=== PATIENT | male | born 1995 | race Caucasian/White ===

== ENCOUNTER 2017-11-15 23:57 | Emergency (ER) | payer OTHER ==
[~2017-11-15] VITALS: Ht 175.3 cm; Wt 106.6 kg
[~2017-11-15 23:57] MED LIST: ALBU90OI INH; AMOCLA500; AMOX500 PO; AZIT250 PO; Bactrim Ds Tab1 EACH PO; CEPH500; CEPH500 PO; CODACE30 PO; CODACEE120 PO; ERYT.5TO LEFTEYE; FLUO20 PO; HYDACE5 PO; IBUP600; IBUP600 PO; LEVE500 PO; LISI5 PO; LORA1 PO; OMEPRAZOLE MAGN20 MG PO; OXCA300 PO; OXYC1TAB11; OXYC5 PO; Percocet 5-3251 EACH PO; SULTRIDS; SULTRIDS PO; TEMODAR; TEMODAR PO; TOPI50 PO; TRILIPTAL PO; VIMPAT; [UNRECOGNIZED DRUG - OTHER] PO; [UNRECOGNIZED DRUG - OTHER] PO
[2017-11-16 00:11] LABS: Hemoglobin 13.9 g/dL (13.5-17.5); Mean Corpuscular HGB 33.9 pg (26.0-34.0); Mean Corpuscular HGB Conc 34.8 g/dL (31.5-36.5); Mean Platelet Volume 8.4 fL (9.1-12.4); Platelet Count 197 K/mm3 (150-400); RDW Standard Deviation 53.5 fL (35.1-46.3); White Blood Cell Count 6.54 K/mm3 (4.00-11.30)
[2017-11-16 00:17] LABS: Mean Corpuscular Volume 98 fL (80-100)
[2017-11-16 00:30] LABS: Alanine Aminotransfer (ALT/SGP 63 U/L (12-78); Albumin, Blood 3.9 g/dL (3.4-5.0); Albumin/Globulin Ratio 1.1 (0.8-1.8); Alk Phos 76 U/L (50-136); Anion Gap 15 mmol/L (6-16); Aspartate Aminotrans (AST/SGOT 41 U/L (12-37); Bilirubin, Total 0.4 mg/dL (0.1-1.0); Blood Urea Nitrogen 19 mg/dL (8-24); Bun/Creatinine Ratio 16.1 (12.0-20.0); CO2, Blood 20 mmol/L (21-32); Calcium, Blood 8.7 mg/dL (8.5-10.1); Chloride, Blood 105 mmol/L (98-108); Creatinine, Blood 1.18 mg/dL (0.60-1.20); Globulin, Blood 3.5 g/dL (2.2-4.0); Glomerular Filtration Rate >60 (60-); Glucose, Blood 155 mg/dL (70-99); Potassium, Blood 4.4 mmol/L (3.5-5.5); Sodium, Blood 140 mmol/L (136-145); Total Protein, Blood 7.4 g/dL (6.4-8.2)
[2017-11-16 00:35] LABS: BAND PERCENT MAN 4 % (0-8); BASOPHILS PERCENT MAN 0 % (0-2); EOSINOPHILS PERCENT MAN 0 % (0-6); LYMPHOCYTES PERCENT MAN 20 % (21-46); METAMYELOCYTE ABSOLUTE MAN 0.13 K/mm3 (0.00-0.00); METAMYELOCYTE PERCENT MAN 2 % (0-0); MONOCYTES ABSOLUTE MAN 0.45 K/mm3 (0.16-1.47); MONOCYTES PERCENT MAN 7 % (4-13); MYELOCYTE ABSOLUTE MAN 0.26 K/mm3 (0.00-0.00); MYELOCYTE PERCENT MAN 4 % (0-0); NEUTROPHILS ABSOLUTE MAN 4.38 K/mm3 (1.96-9.15); SEG NEUTROPHILS PERCENT MAN 63 % (41-73); TOTAL CELLS COUNTED 100
[2017-11-16] MEDS ORDERED: DEXA4 PO (00:43)
[2017-11-16] MEDS ORDERED: GLEOSTINE100 MG PO (00:44)
[2017-11-16] MEDS ORDERED: LISI5 PO (00:44)
[2017-11-16] MEDS ORDERED: LORA1 PO (00:45)
[2017-11-16] MEDS ORDERED: MEDICAL MARIJAUNA PO (00:46)
[2017-11-16] MEDS ORDERED: MIDAZOLAM INH (00:48)
[2017-11-16] MEDS ORDERED: Zofran8 MG PO (00:49)
[2018-01-12] MEDS ORDERED: LACO50TA2 PO (08:02)
[2018-01-12] MEDS ORDERED: LEVE500 PO (08:04)
[2018-01-12] MEDS ORDERED: HYDMOR2 PO (08:04)
[2018-01-12] MEDS ORDERED: DOCU100 PO (08:04)
== END 2017-11-16 02:47 | disposition home or self-care (01) ==
LOC: ER 23:57
PROVIDERS: Emergency Medicine
DX: G40.909 Epilepsy, unspecified, not intractable, without status epilepticus (principal); C71.9 Malignant neoplasm of brain, unspecified; Z88.8 Allergy status to other drugs, medicaments and biological substances; Z79.899 Other long term (current) drug therapy
CPT/HCPCS: 36415; 80053; 85025; 93005; 93010; 99284

== ENCOUNTER 2017-11-30 01:00 | Emergency (ER) | payer OTHER ==
[~2017-11-30] VITALS: Ht 175.3 cm; Wt 106.6 kg
[~2017-11-30 01:00] MED LIST changes: +DEXA4 PO; +GLEOSTINE100 MG PO; +MEDICAL MARIJAUNA PO; +MIDAZOLAM INH; +Zofran8 MG PO
[2017-11-30 01:36] LABS: Hematocrit 46.7 % (37.0-53.0); Hemoglobin 15.9 g/dL (13.5-17.5); LYMPHOCYTES PERCENT AUTO 19 % (21-46); MONOCYTES ABSOLUTE AUTO 2.29 K/mm3 (0.16-1.47); MONOCYTES PERCENT AUTO 8 % (4-13); Mean Corpuscular HGB 34.5 pg (26.0-34.0); Mean Platelet Volume 9.6 fL (9.1-12.4); NRBC ABSOLUTE 0.06 K/mm3 (0.00-0.02); NRBC Auto 0.2 /100 WBC (0.0-0.2); Platelet Count 245 K/mm3 (150-400); RDW Coefficient Variation 14.1 % (11.7-14.2); Red Blood Cell Count 4.61 M/mm3 (4.30-5.90); White Blood Cell Count 28.24 K/mm3 (4.00-11.30)
[2017-11-30 01:40] LABS: BASOPHILS ABSOLUTE AUTO 0.06 K/mm3 (0.00-0.23); BASOPHILS PERCENT AUTO 0 % (0-2); EOSINOPHILS PERCENT AUTO 0 % (0-6); IMMATURE GRAN PERCENT AUTO 17 % (0-1); Mean Corpuscular Volume 101 fL (80-100); NEUTROPHILS ABSOLUTE AUTO 15.69 K/mm3 (1.96-9.15); NEUTROPHILS PERCENT AUTO 56 % (41-73)
[2017-11-30 01:43] LABS: Alanine Aminotransfer (ALT/SGP 112 U/L (12-78); Albumin, Blood 3.9 g/dL (3.4-5.0); Alk Phos 135 U/L (50-136); Anion Gap 27 mmol/L (6-16); Aspartate Aminotrans (AST/SGOT 101 U/L (12-37); Bilirubin, Total 0.4 mg/dL (0.1-1.0); Blood Urea Nitrogen 22 mg/dL (8-24); Bun/Creatinine Ratio 17.1 (12.0-20.0); CO2, Blood 8 mmol/L (21-32); Chloride, Blood 102 mmol/L (98-108); Creatinine, Blood 1.29 mg/dL (0.60-1.20); Glomerular Filtration Rate >60 (60-); Glucose, Blood 265 mg/dL (70-99); Potassium, Blood 3.5 mmol/L (3.5-5.5); Sodium, Blood 137 mmol/L (136-145); Total Protein, Blood 7.9 g/dL (6.4-8.2)
[2017-11-30 01:58] LABS: BAND PERCENT MAN 16 % (0-8); BASOPHILS PERCENT MAN 0 % (0-2); EOSINOPHILS PERCENT MAN 0 % (0-6); LYMPHOCYTES ABSOLUTE MAN 4.23 K/mm3 (0.84-5.20); LYMPHOCYTES PERCENT MAN 15 % (21-46); METAMYELOCYTE ABSOLUTE MAN 0.84 K/mm3 (0.00-0.00); METAMYELOCYTE PERCENT MAN 3 % (0-0); MONOCYTES ABSOLUTE MAN 1.12 K/mm3 (0.16-1.47); MONOCYTES PERCENT MAN 4 % (4-13); MYELOCYTE ABSOLUTE MAN 0.84 K/mm3 (0.00-0.00); MYELOCYTE PERCENT MAN 3 % (0-0); NEUTROPHILS ABSOLUTE MAN 20.33 K/mm3 (1.96-9.15); PROMYELOCYTE ABSOLUTE MAN 0.84 K/mm3 (0.00-0.00); PROMYELOCYTE PERCENT MAN 3 % (0-0); SEG NEUTROPHILS PERCENT MAN 56 % (41-73); TOTAL CELLS COUNTED 100
[2017-11-30 02:00] LABS: PO2 Arterial 81.1 mmHg (80-100); pH Blood Arterial 7.17 (7.35-7.45)
[2017-11-30 02:29] LABS: PCO2 Arterial 40.6 mmHg (35-45); PO2 Arterial 62.2 mmHg (80-100)
[2018-01-12] MEDS ORDERED: LACO50TA2 PO (08:02)
[2018-01-12] MEDS ORDERED: DOCU100 PO (08:04)
[2018-01-12] MEDS ORDERED: LEVE500 PO (08:04)
[2018-01-12] MEDS ORDERED: HYDMOR2 PO (08:04)
== END 2017-11-30 03:33 | disposition short-term general hospital (02) ==
LOC: ER 01:00
PROVIDERS: Emergency Medicine
DX: G40.909 Epilepsy, unspecified, not intractable, without status epilepticus (principal); C71.9 Malignant neoplasm of brain, unspecified; J96.01 Acute respiratory failure with hypoxia; J69.0 Pneumonitis due to inhalation of food and vomit; Z88.8 Allergy status to other drugs, medicaments and biological substances; Z79.899 Other long term (current) drug therapy
CPT/HCPCS: 31500; 31720; 36600; 51702; 70450; 71260; 80053; 82803; 83605; 85025; 87040; 94002; 96374; 96375; 99291; 99292; J0330; J1956; J2060; J2543; J7030; Q9967